=== PATIENT | male | born 1955 | race Caucasian/White ===

== ENCOUNTER 2021-02-07 06:46 | Day surgery (SDC) | payer OTHER ==
[2021-02-06 10:43] LABS: BASOPHILS % (AUTO) 1.4 % (0.0-5.0); EOSINOPHILS % (AUTO) 0.6 % (0.0-8.0); HEMATOCRIT 51.2 % (42-54); LYMPHOCYTES % (AUTO) 21.1 % (21.0-51.0); MEAN CORPUSCULAR HGB CONC 31.8 g/dL (32.0-36.0); MEAN CORPUSCULAR VOLUME 97.3 fL (79-99); MONOCYTES % (AUTO) 6.4 % (3.0-13.0); NEUTROPHILS % (AUTO) 70.2 % (40.0-77.0); PLATELET COUNT (AUTO) 160 K/uL (130-400); RED BLOOD CELL COUNT(AUTO) 5.26 MIL/uL (4.50-6.20); RED CELL DISTRIBUTION WIDTH 13.8 % (11.0-15.5); WHITE BLOOD COUNT (AUTO) 6.5 K/uL (4.8-10.8)
[2021-02-06 11:16] LABS: POTASSIUM 4.6 mmol/L (3.5-5.1)
[2021-02-07] VITALS (11 sets, daily range): BP systolic 116–143; BP diastolic 71–90
[~2021-02-07 06:46] MED LIST: ACET1TAB25 PO; AEC81 PO; EZET10TA48 PO; MELO10CA3 PO; OMEP40CA21 PO
[2021-02-07] MEDS ORDERED: LACTATED RINGERS 1000ML 1,000 ML IV ONE (07:36)
[2021-02-07] MEDS ORDERED: BUPIVACAINE/PF 0.5% 30ML VIAL ONE (07:58)
[2021-02-07] MEDS ORDERED: IOPAMIDOL 10 ML VIAL ONE (08:03)
[2021-02-07] MEDS: CEFAZOLIN SODIUM 1 GM VIAL ONE ×2 (08:06→08:31)
[2021-02-07] MEDS ORDERED: PROPOFOL 10 MG/ML 20ML VIAL IV ONE ×2 (08:25)
[2021-02-07] MEDS ORDERED: MIDAZOLAM HCL 1 MG/ML 2ML VIAL ONE (08:25)
[2021-02-07] MEDS ORDERED: FENTANYL CITRATE PF 50 MCG/1 ML 2ML VIAL ONE (08:26)
== END 2021-02-07 09:40 | disposition home or self-care (01) ==
LOC: DAH 06:46
PROVIDERS: ATTEND Orthopaedic Surgery
DX: M23.342 Other meniscus derangements, anterior horn of lateral meniscus, left knee (principal); Z20.822 Contact with and (suspected) exposure to COVID-19; M16.12 Unilateral primary osteoarthritis, left hip; G89.29 Other chronic pain; I10 Essential (primary) hypertension; E78.5 Hyperlipidemia, unspecified; G47.30 Sleep apnea, unspecified; K21.9 Gastro-esophageal reflux disease without esophagitis; Z98.890 Other specified postprocedural states; Z72.89 Other problems related to lifestyle; Z87.891 Personal history of nicotine dependence; Z79.01 Long term (current) use of anticoagulants; Z86.010 Personal history of colon polyps; Z82.49 Family history of ischemic heart disease and other diseases of the circulatory system; Z79.82 Long term (current) use of aspirin; Z79.899 Other long term (current) drug therapy; Z90.49 Acquired absence of other specified parts of digestive tract
CPT/HCPCS: 20610; 29881; 36415; 73502; 80048; 85025; 87635; A4215; A4221; A4222; A4223; A4663; C9803; J0690; J1030; J2250; J2704; J3010; J3490; J7120; Q9966; 27093

== ENCOUNTER 2021-07-02 15:31 | Emergency (ER) | payer OTHER ==
[~2021-07-02] VITALS: Ht 180.3 cm; Wt 105.7 kg
[~2021-07-02 15:31] MED LIST changes: -ACET1TAB25 PO; -AEC81 PO; +APIX2.5T PO; +AREDS PO; +HYDR-4060 PO; -MELO10CA3 PO; +TERA5CAP4 PO
[2021-07-02 15:37] VITALS: BP 120/71
== END 2021-07-02 17:09 | disposition home or self-care (01) ==
LOC: EDH 15:31
DX: I82.402 Acute embolism and thrombosis of unspecified deep veins of left lower extremity (principal); E78.00 Pure hypercholesterolemia, unspecified; Z90.49 Acquired absence of other specified parts of digestive tract; Z98.890 Other specified postprocedural states; Z88.8 Allergy status to other drugs, medicaments and biological substances; Z79.899 Other long term (current) drug therapy; Z91.048 Other nonmedicinal substance allergy status
CPT/HCPCS: 93970

== ENCOUNTER 2021-11-28 11:09 | Inpatient (IN) | payer OTHER ==
[2021-11-27 11:10] VITALS: BP 129/81
[~2021-11-28] VITALS: Ht 180.3 cm; Wt 109.5 kg
[~2021-11-28 11:09] MED LIST changes: -APIX2.5T PO; +DESONIDE TP; +DOCU100C33 PO; -HYDR-4060 PO; +MELO-106 PO; +MUPI22OI2 TP; +NORT75CA PO; +OMEP20CA12 PO; -OMEP40CA21 PO; +PIME30CR TP; +[UNRECOGNIZED DRUG - REMARK] OU; +areds PO
[2021-11-28 11:40] VITALS: BP 126/81
[2021-11-28] MEDS ORDERED: LACTATED RINGERS 1000ML 1,000 ML IV ONE (11:53)
[2021-11-28] MEDS ORDERED: SILD100T PO (12:11)
[2021-11-28] MEDS ORDERED: CEFAZOLIN SODIUM 1 GM VIAL ONE (14:43)
[2021-11-28] MEDS ORDERED: SUCCINYLCHOLINE CHLORIDE 20 MG/ML 10 ML VIAL ONE (20:07)
[2021-11-28] MEDS ORDERED: ROCURONIUM 10MG/1ML SYR 10 MG/ML ML ONE ×2 (20:07→21:33)
[2021-11-28] MEDS ORDERED: MIDAZOLAM HCL 1 MG/ML 2ML VIAL ONE (20:07)
[2021-11-28] MEDS ORDERED: PROPOFOL 10 MG/ML 20ML VIAL IV ONE (20:07)
[2021-11-28] MEDS ORDERED: FENTANYL CITRATE PF 50 MCG/1 ML 2ML VIAL ONE (20:08)
[2021-11-28] MEDS ORDERED: CEFAZOLIN SODIUM 2 GM VIAL IV ONE (20:20)
[2021-11-28] MEDS ORDERED: VANCOMYCIN 1G VIAL TP ONE (20:56)
[2021-11-28] MEDS ORDERED: BUPIVACAINE/PF 0.25% 30ML VIAL IJ ONE (20:58)
[2021-11-28] MEDS ORDERED: MORPHINE PF 100MG/10ML AMP IV ONE (20:58)
[2021-11-28] MEDS ORDERED: THROMBIN-JMI 20000 UNIT KIT TP ONE (20:59)
[2021-11-28] MEDS ORDERED: FENTANYL CITRATE PF 50 MCG/1 ML 5ML AMP IV ONE (21:31)
[2021-11-28] MEDS ORDERED: VANCOMYCIN 1G VIAL ONE (21:59)
[2021-11-28] MEDS ORDERED: GLYCOPYRROLATE 1 MG/5 ML SYRINGE ONE (22:05)
[2021-11-28] MEDS ORDERED: PHENYLEPHRINE HCL 10 MG/ML 1ML VIAL IV ONE (22:37)
[2021-11-28] MEDS ORDERED: EPHEDRINE SULFATE 50 MG/ML AMPULE ONE (22:38)
[2021-11-28] MEDS ORDERED: MEPERIDINE-PF 25 MG/ML SYG ONE (23:06)
[2021-11-28] MEDS ORDERED: KETOROLAC 30MG VIAL (30MG/ML) ONE (23:19)
[2021-11-28] MEDS ORDERED: NEOSTIGMINE 5MG/5ML SYR IV ONE (23:33)
[2021-11-29] VITALS (26 sets, daily range): BP systolic 122–165; BP diastolic 58–97
[2021-11-29] MEDS ORDERED: MEPERIDINE-PF 50 MG/ML SYG ONE ×2 (00:06→04:08)
[2021-11-29] MEDS ORDERED: FENTANYL CITRATE PF 50 MCG/1 ML 2ML VIAL ONE (00:27)
[2021-11-29] MEDS: LACTATED RINGERS 1000ML 1,000 ML IV SCH ×2 (02:30→13:32)
[2021-11-29] MEDS ORDERED: ONDANSETRON 4MG INJ IVP PRN (02:30)
[2021-11-29] MEDS ORDERED: ACETAMINOPHEN WITH CODEINE 1 TAB TAB PO PRN (02:30)
[2021-11-29] MEDS ORDERED: MEPERIDINE-PF 75 MG/ML SYG IM PRN (02:30)
[2021-11-29] MEDS ORDERED: MELOXICAM 7.5 MG TABLET PO PRN (03:00)
[2021-11-29] MEDS ORDERED: DOCUSATE SODIUM 100 MG CAP PO PRN (03:00)
[2021-11-29] MEDS: MEPERIDINE-PF 25 MG/ML SYG IV PRN ×2 (08:05→20:00)
[2021-11-29] MEDS: EZETIMIBE 10 MG TAB PO SCH (08:12)
[2021-11-29] MEDS: PANTOPRAZOLE 40 MG TAB DR PO SCH ×2 (08:20→19:57)
[2021-11-29] MEDS: ACETAMINOPHEN WITH CODEINE 1 TAB TAB PO PRN (10:42)
[2021-11-29] MEDS ORDERED: MEPERIDINE-PF 25 MG/ML SYG IM PRN (20:30)
[2021-11-29] MEDS: AREDS VITAMIN PO SCH (20:45)
[2021-11-29] MEDS ORDERED: NORTRIPTYLINE HCL 150 MG PO SCH ×2 (21:00)
[2021-11-29] MEDS ORDERED: TERAZOSIN 5MG CAP PO SCH (21:00)
[2021-11-30 04:38] VITALS: BP 119/70
[2021-11-30 07:40] VITALS: BP 130/70
[2021-11-30] MEDS: AREDS VITAMIN PO SCH (09:00)
[2021-11-30] MEDS: PANTOPRAZOLE 40 MG TAB DR PO SCH (09:19)
[2021-11-30] MEDS: ACETAMINOPHEN WITH CODEINE 1 TAB TAB PO PRN (09:19)
[2021-11-30] MEDS: EZETIMIBE 10 MG TAB PO SCH (09:19)
[2021-11-30 10:39] VITALS: BP 126/69
== END 2021-11-30 14:47 | disposition home health service (06) | DRG 460 ==
LOC: DAH 11:09 → DAHIP 11:10 → DAH 11:10 → OBSVTOIN 11:10 → 4AH 11-29 01:21
PROVIDERS: ADMIT Neuromusculoskeletal Medicine & OMM; ATTEND Neuromusculoskeletal Medicine & OMM
PROC: 00NY0ZZ Release Lumbar Spinal Cord, Open Approach (ICD-10-PCS; 2021-11-28)
PROC: 4A11X4G Monitoring of Peripheral Nervous Electrical Activity, Intraoperative, External Approach (ICD-10-PCS; 2021-11-28)
PROC: 0SG30AJ Fusion of Lumbosacral Joint with Interbody Fusion Device, Posterior Approach, Anterior Column, Open Approach (ICD-10-PCS; principal; 2021-11-28 20:56)
DX: M48.07 Spinal stenosis, lumbosacral region (principal); M51.37 Other intervertebral disc degeneration, lumbosacral region; M48.062 Spinal stenosis, lumbar region with neurogenic claudication; Z20.822 Contact with and (suspected) exposure to COVID-19
CPT/HCPCS: 36415; 72110; 86850; 86900; 86901; 87426; 96372; 96374; 96375; 96376; 97039; G0378; J0330; J0690; J1885; J2175; J2250; J2274; J2370; J2405; J2704; J2710; J3010; J3370; J3490; J7030; J7120

== ENCOUNTER 2024-05-23 07:24 | Emergency (ER) | payer OTHER, MEDICARE ==
[~2024-05-23] VITALS: Ht 180.3 cm; Wt 111.1 kg
[~2024-05-23 07:24] MED LIST changes: -AREDS PO; +SILD100T PO
[2024-05-23] MEDS: LIDOCAINE 5% TOPICAL PATCH TP ONE (09:26)
[2024-05-23] MEDS: diazePAM 5 MG/ML 2 ML SYG IM ONE (09:27)
--- NOTE | 2024-05-23 10:15 | ERN ---
ED Note History of Present Illness Stated Complaint: LT SCIATICA PAIN Chief Complaint: Lower Extremity Pain/Injury Time Seen by MD: 07:31 Dictation: 68-year-old male presents to the ED for evaluation of left sciatica pain onset 2 weeks ago. Patient reports he felt a pop after getting out of the car two weeks ago. History of total left hip replacement. Allergies: Coded Allergies: Sijapnm-HTY-JaF Reductase Inhibitor (Unverified Allergy, Unknown, 02/06/21) adhesive tape (Unverified Allergy, Unknown, 06/20/21) gabapentin (Unverified Allergy, Unknown, 02/06/21) Home Meds Reported Medications Sildenafil Citrate (Viagra) 100 Mg Tablet, 100 MG PO AD, TAB 11/28/21 Pimecrolimus (Pimecrolimus) 30 Gm Cream..g., 1 APPL TP AD 11/27/21 [areds] No Conflict Check, 1 TAB PO BID 11/27/21 Omeprazole (Omeprazole) 20 Mg Capsule.dr, 20 MG PO BID, CAP 11/27/21 Nortriptyline HCl (Nortriptyline HCl) 75 Mg Capsule, 150 MG PO HS, CAP 11/27/21 Mupirocin (Mupirocin Ointment) 22 Gm Oint, 1 APPL TP AD PRN for RASH, APPL 11/27/21 Meloxicam (Meloxicam) 7.5 Mg Tablet, 7.5 MG PO DAILY PRN for pain, TAB 11/27/21 [ketolifen] No Conflict Check, 1 DROP OU BID 11/27/21 Docusate Sodium (Docusate Sodium) 100 Mg Capsule, 100 MG PO DAILY PRN for CONSTIPATION, CAP 11/27/21 [desonide] No Conflict Check, 1 APPL TP AD 11/27/21 Terazosin HCl (Terazosin HCl) 5 Mg Capsule, 5 MG PO HS, CAP 06/20/21 Ezetimibe (Ezetimibe) 10 Mg Tablet, 10 MG PO DAILY, TAB 02/06/21 Past Medical History Past Medical History: DVT, High Cholesterol 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 Surgical History: Appendectomy Surgical History Other: MAXINE left HIP, BACK, SHOULDER, LT KNEE Family History: Negative Social History: Negative Review of System Dictation Constitutional: Negative for fever,chills, and weight loss Eyes: Negative for injury, pain,redness, and discharge ENT: Negative for injury,pain or swelling Cardiovascular: Negative for chest pain, palpitations, and edema Respiratory: Negative for shortness of breath, cough, and wheezing, Abdomen/GI: Negative for abdominal pain, nausea, vomiting, diarrhea, and constipation Back: Negative for injury and pain : Negative for injury, bleeding and discharge MS/Extremity: Negative for injury and deformity Skin: Negative for rash, and discoloration Neuro: Negative for headache, weakness, numbness, tingling, and seizure Psych: Negative for suicide ideation, homicidal ideation, and hallucinations Initial Vital Sign VS Vital Signs Date Time Temp Pulse Resp B/P (MAP) Pulse Ox O2 Delivery O2 Flow Rate FiO2 05/23/24 07:27 98.2 79 16 106/78 98 Room Air 0 05/23/24 07:30 21 Physical Exam Dictation General: awake, alert, NAD Head/Face: Normocephalic, atraumatic Eyes: PERRL, EOMI, vision at baseline ENT: oral cavity clear, TMs clear, no signs of infection Neck: Trachea midline, supple, no nuchal rigidity Cardiovascular: RRR, normal S1/S2, No MRGs, no JVD Respiratory: CTAB, no respiratory distress, No rales or wheezes Abdomen: Soft, non-tender, non-distended, normal bowel sounds, no guarding or rebound. Skin: Warm, dry, normal turgor, no rash MS/Extremity: Pulses equal, no cyanosis, neurovascular intact, positive straight left leg test Neuro: COAx4, GCS 15, strength 5/5, CN 2-12 intact, normal cerebellar exam, normal gait, Psych: Normal behavior, mood, and affect normal Results (Laboratory/Radiology) Laboratory/Radiology Laboratory Tests Test 05/23/24 17:04 White Blood Count 4.3 K/uL (4.8-10.8) L Red Blood Count 4.55 MIL/uL (4.50-6.20) Hemoglobin 14.0 g/dL (14.0-18.0) Hematocrit 42.2 % (42-54) Mean Corpuscular Volume 92.7 fL (79-99) Mean Corpuscular Hemoglobin 30.8 pg (27.0-33.0) Mean Corpuscular Hemoglobin Concent 33.2 g/dL (32.0-36.0) Red Cell Distribution Width 13.8 % (11.0-15.5) Platelet Count 151 K/uL (130-400) Mean Platelet Volume 9.9 fL (7.5-10.5) Immature Granulocyte % (Auto) 0.7 % (0-1) Neutrophils (%) (Auto) 76.7 % (40.0-77.0) Lymphocytes (%) (Auto) 10.5 % (21.0-51.0) L Monocytes (%) (Auto) 11.2 % (3.0-13.0) Eosinophils (%) (Auto) 0.0 % (0.0-8.0) Basophils (%) (Auto) 0.9 % (0.0-5.0) Neutrophils # (Auto) 3.3 K/uL (1.8-7.7) Lymphocytes # (Auto) 0.5 K/uL (1.0-4.8) L Monocytes # (Auto) 0.5 K/uL (0.1-1.0) Eosinophils # (Auto) 0.00 K/uL (0.00-0.70) Basophils # (Auto) 0.04 K/uL (0.00-0.20) Absolute Immature Granulocyte (auto 0.03 K/uL (0-1) Nucleated Red Blood Cells 0.0 % (0.0-0.19) Sodium Level 140 mmol/L (136-145) Potassium Level 3.1 mmol/L (3.5-5.1) L Chloride Level 104 mmol/L (101-111) Carbon Dioxide Level 25 mmol/L (21-32) Blood Urea Nitrogen 12 mg/dL (7-18) Creatinine 1.0 mg/dL (0.5-1.3) Glomerular Filtration Rate Calc 82 mL/min (>90) Random Glucose 79 mg/dL (70-105) Total Calcium 8.5 mg/dL (8.5-10.1) Labs Reviewed?: Yes X-RAY Comment: REASON: left hip pain ORDERING PHYSICIAN: CATY CAMPOS MD PROCEDURE: HIP U 2V L - HIP UNILAT 2-3VW LEFT HIP UNILAT 2-3VW LEFT CLINICAL HISTORY: left hip pain COMPARISON: None TECHNIQUE: AP pelvis and 2 images left hip were obtained. FINDINGS: There is change from left total hip arthroplasty. There is also change present lumbar sacral spinal fusion . There is no identified acute fracture subluxation dislocation. IMPRESSION: No acute findings. DICTATED BY: SLIME BANEGAS DO DATE: 05/23/[address] Scan Comment: REASON: low back pain ORDERING PHYSICIAN: CATY CAMPOS MD PROCEDURE: L SPIN WO - CT LUMBAR SPINE W/O CONTRAST CT LUMBAR SPINE W/O CONTRAST REASON: low back pain COMPARISON: None TECHNIQUE: Routine lumbar imaging protocol was performed from mid body T11 through the sacrum. Sagittal and coronal reconstruction images were then performed. FINDINGS: There are normal appearing vertebral bodies. There is narrowing of the L5-S1 interspace there is a disc stabilization device in place. There are bilateral pedicle screws at L3, L4 and L5 and there has been bilateral laminectomy at L4 and L5. There is ligamentum flavum and facet hypertrophic change at L3-4. There is annular bulge. These findings result in severe spinal stenosis, AP diameter 5 mm in the midline and more pronounced narrowing in the lateral recesses. Remaining interspaces are preserved. There are no focal osseous lesions. Surrounding soft tissues appear unremarkable. IMPRESSION: 1. Postop and degenerative changes as described. 2. Severe spinal stenosis at L3-4 on a degenerative basis. DICTATED BY: DAYTON MARTINEZ MD DATE: 05/23/24 1652 ED Course ED Course Orders Procedure Category Date Status Time Lidocaine (Lidoderm PHA 05/23/24 Complete Patch 5%) 08:30 Diazepam 5 Mg/Ml 2 Ml PHA 05/23/24 Complete Syg (Valium 5 Mg/M 08:30 Hip Unilat 2-3vw Left RAD 05/23/24 Resulted 08:26 Morphine 4mg Syg PHA 05/23/24 Complete (Morphine 4mg Syg) 10:30 Hydrocodone/Apap PHA 05/23/24 Complete 5/325 ([place] 5/325mg) 12:00 Hydromorphone 0.5mg PHA 05/23/24 Complete Syg (Dilaudid 0.5mg 15:30 Cbc With Differential LAB 05/23/24 Complete 15:58 Basic Metabolic Panel LAB 05/23/24 Complete 15:58 Ct Lumbar Spine W/O CT 05/23/24 Resulted Contrast 16:15 Current Medications Medications (Trade) Dose Ordered Sig/Sadie Route PRN Reason Start Time Stop Time Status Last Admin Dose Admin Acetaminophen/ Hydrocodone Bitart (NORco 5/325MG) 1 tab ONCE ONCE PO 05/23/24 12:00 05/23/24 12:01 DC 05/23/24 12:02 Diazepam (VALium 5 MG/ML 2 ML SYG) 5 mg ONCE ONCE IM 05/23/24 08:30 05/23/24 08:31 DC 05/23/24 09:27 Hydromorphone HCl (DiLAUDid 0.5MG INJ) 0.5 mg ONCE ONCE IVP 05/23/24 15:30 05/23/24 15:31 DC 05/23/24 15:33 Lidocaine (Lidoderm Patch 5%) 1 patch ONCE ONCE TP 05/23/24 08:30 05/23/24 08:31 DC 05/23/24 09:26 Morphine Sulfate (morPHINE 4MG SYG) 4 mg ONCE ONCE IVP 05/23/24 10:30 05/23/24 10:31 DC 05/23/24 10:33 Vital Signs Date Time Temp Pulse Resp B/P (MAP) Pulse Ox O2 Delivery O2 Flow Rate FiO2 05/23/24 15:30 98.1 72 25 138/73 96 Room Air* 0 21 05/23/24 10:44 98.1 81 17 131/66 96 Room Air* 0 21 05/23/24 10:00 74 17 138/78 98 Room Air* 0 05/23/24 08:35 98.2 75 17 126/69 96 Room Air* 0 21 05/23/24 07:30 98.2 79 16 106/78 98 Room Air* 0 05/23/24 07:27 98.2 79 16 106/78 98 Room Air 0 Medical Decision Making MDM MDM: Differential diagnosis: Sciatica, intractable pain, hip pain 1612- Dr. Ivy hospitalist consul, accepts patient for admission Risk of complication and/or morbidity or mortality of patient management: None Medications-Per medication reconciliation Need for hospitalization: Patient does meet criteria for hospitalization. Need for emergency major/minor surgery: No There are no social concerns with this patient. I independently interpreted the test that were performed, results were reviewed by me and considered findings on radiology if ordered. Medical management and examination interpretation discussions were had by me with other qualified healthcare professionals as indicated for the patient's care. DX & DISP Disposition: Inpatient Decision to Admit Date: May 23, 2024 Decision to Admit Time: 16:13 Departure Impression: Primary Impression: Intractable pain Additional Impression: Left hip pain Condition: Stable Referrals: SAMREEN LADD MD (PCP) CATY CAMPOS MD May 23, 2024 10:15
[2024-05-23] MEDS: morPHINE 4 MG SYG IVP ONE (10:33)
--- NOTE | 2024-05-23 10:53 | HMCIMG ---
HIP UNILAT 2-3VW LEFT CLINICAL HISTORY: left hip pain COMPARISON: None TECHNIQUE: AP pelvis and 2 images left hip were obtained. FINDINGS: There is change from left total hip arthroplasty. There is also change present lumbar sacral spinal fusion . There is no identified acute fracture subluxation dislocation. IMPRESSION: No acute findings.
[2024-05-23] MEDS: HYDROcodone/APAP 5/325 1 TAB TABLET PO ONE (12:02)
[2024-05-23] MEDS: hydroMORPHone 0.5 MG SYG (0.5MG/0.5ML) IVP ONE (15:33)
--- NOTE | 2024-05-23 17:12 | HMCIMG ---
CT LUMBAR SPINE W/O CONTRAST REASON: low back pain COMPARISON: None TECHNIQUE: Routine lumbar imaging protocol was performed from mid body T11 through the sacrum. Sagittal and coronal reconstruction images were then performed. FINDINGS: There are normal appearing vertebral bodies. There is narrowing of the L5-S1 interspace there is a disc stabilization device in place. There are bilateral pedicle screws at L3, L4 and L5 and there has been bilateral laminectomy at L4 and L5. There is ligamentum flavum and facet hypertrophic change at L3-4. There is annular bulge. These findings result in severe spinal stenosis, AP diameter 5 mm in the midline and more pronounced narrowing in the lateral recesses. Remaining interspaces are preserved. There are no focal osseous lesions. Surrounding soft tissues appear unremarkable. IMPRESSION: 1. Postop and degenerative changes as described. 2. Severe spinal stenosis at L3-4 on a degenerative basis.
[2024-05-23 17:15] LABS: BASOPHILS # (AUTO) 0.04 K/uL (0.00-0.20); BASOPHILS % (AUTO) 0.9 % (0.0-5.0); HEMATOCRIT 42.2 % (42-54); IMMATURE GRANULOCYTE ABSOLUTE 0.03 K/uL (0-1); LYMPHOCYTES # (AUTO) 0.5 K/uL (1.0-4.8); LYMPHOCYTES % (AUTO) 10.5 % (21.0-51.0); MEAN CORPUSCULAR HEMOGLOBIN 30.8 pg (27.0-33.0); MEAN CORPUSCULAR HGB CONC 33.2 g/dL (32.0-36.0); MEAN CORPUSCULAR VOLUME 92.7 fL (79-99); MONOCYTES # (AUTO) 0.5 K/uL (0.1-1.0); MONOCYTES % (AUTO) 11.2 % (3.0-13.0); NEUTROPHILS # (AUTO) 3.3 K/uL (1.8-7.7); NEUTROPHILS % (AUTO) 76.7 % (40.0-77.0); PLATELET COUNT (AUTO) 151 K/uL (130-400); RED BLOOD CELL COUNT(AUTO) 4.55 MIL/uL (4.50-6.20); RED CELL DISTRIBUTION WIDTH 13.8 % (11.0-15.5); WHITE BLOOD COUNT (AUTO) 4.3 K/uL (4.8-10.8)
[2024-05-23 17:17] LABS: POTASSIUM 3.1 mmol/L (3.5-5.1)
--- NOTE | 2024-05-23 18:17 | CONS ---
[facility] CONSULTATION NOTE Date of Service: May 23, 2024 Reason for Consultation: evaluation of intractable back pain Requesting Physician: Dr. Campos HISTORY OF PRESENT ILLNESS: 68-year-old male with history of BPH, prior history of lumbar stenosis involving L5-S1, L4-L5 with prior history of lumbar diskectomy of L5 and S1 with posterior decompressive laminectomy at L5 and S1, w/ arthrodesis of L4-L5, L5-S1 by Dr. Lubin in 2021, recent diagnosis of left lower extremity DVT who presented to the ER for further evaluation of intractable lower back pain radiating to the left. Symptoms have been ongoing for about a week and patient reports having history of sciatica. He has been maintained on outpatient pain control with Tylenol with codeine. Patient states that while he was getting out of the car about 10 days ago, he felt a pop and since then he has been having intractable pain. Pain is 10/10 in intensity and it starts from the lower back and goes all the way into the ankle. Patient also has tingling involving the left foot. He has been unable to ambulate due to severity of pain. He has been observed in the ER for about 8 hours and had received multiple doses of narcotics including hydromorphone 0.5 mg, Irving-5, 4 mg of IV morphine, diazepam 5 mg, and lidocaine patch and patient states that his pain is currently 8/10 in intensity. Patient has undergone x-ray of the left hip which showed no acute fracture, subluxation or dislocation. I had recommended ER to obtain CT of the lumbar spine which showed postop changes of the L4-L5 and L5-S1 with severe spinal stenosis involving the L3/L4. Patient was recently diagnosed with left lower extremity DVT on the new year's last month and he has been on anticoagulation with Xarelto since then. Patient states that he took a dose of Xarelto this morning. REVIEW OF SYSTEMS CONSTITUTIONAL: Denies fevers, chills, or night sweats. No unintentional weight loss reported. NEUROLOGICAL: Patient reports having intractable pain involving the back radiating into the leg with tingling, pain is severe in intensity ENT: No hearing loss, otalgia, otorrhea, rhinitis, rhinorrhea, hoarseness, or sore throat. CARDIOVASCULAR: Denies any exertional angina, dyspnea on exertion, orthopnea, paroxysmal nocturnal dyspnea, palpitations, life-threatening arrhythmias, claudication. PULMONARY: Denies any shortness of breath, cough, phlegm/sputum, hemoptysis, pleuritic chest pain. SLEEP: Denies morning headaches, daytime somnolence or napping. Denies difficulty falling asleep, staying asleep, waking from sleep. Denies knowledge of snoring. GASTROINTESTINAL: Denies any type of dysphagia to either liquids or solids. Denies nausea, vomiting, pyrosis, early satiety, abdominal pain, diarrhea, co nstipation, or changes in stool consistency or caliber. Denies coffee-ground emesis, hematemesis, hematochezia, or melanotic stools. GENITOURINARY: Denies frequency, urgency, nocturia, hematuria or incontinence (Storage/Irritative symptoms.) Low urinary stream, straining to void, urinary intermittency or hesitancy, splitting of the voiding stream, terminal dribbling. ENDOCRINOLOGIC: Denies polyuria, polydipsia, polyphagia or heat/cold intolerances. HEMATOLOGIC: Denies thrombophilia/previous clots, or coagulopathy/bleeding disorders. ONCOLOGIC: Denies personal history of malignancy. DERMATOLOGIC: Denies rashes or pruritus. PSYCHIATRIC: Denies any suicidal or homicidal ideation. Denies hallucinations. PAST MEDICAL HISTORY: Recent diagnosis of left lower extremity deep vein thrombosis on 04/27 and patient was recently started on anticoagulation with Xarelto, and has a history of lumbar stenosis with disc herniation involving L5 and S1 and L4-L5 requiring surgery in 2021, BPH, hyperlipidemia, GERD PAST SURGICAL HISTORY: Posterior lumbar interbody fusion at L5 and S1, posterior decompressive laminectomy at L5 and S1, arthrodesis at L4-5, L5-S1, allograft bony fusion with autograft bony fusion, morselized, L4-5, L5-S1, pedicle screw fixation at L4, L5 and S1, application of interbody cage fusion at the L5-S1, arthrodesis and fluoroscopy by Dr. Lubin in 11/2021 Left total hip arthroplasty by Dr. Hammonds on 06/21/2021 PAST SOCIAL HISTORY: denies active smoking or alcohol consumption FAMILY HISTORY: denies pertinent family hx Coded Allergies: Bvgozni-GWT-AsZ Reductase Inhibitor (Unverified Allergy, Unknown, 02/06/21) adhesive tape (Unverified Allergy, Unknown, 06/20/21) gabapentin (Unverified Allergy, Unknown, 02/06/21) PHYSICAL EXAM GENERAL APPEARANCE: The patient is awake, alert, and oriented, in no acute cardiopulmonary distress. NEUROLOGICAL: Cranial nerves II-XII grossly intact. straight leg raise test was noted to be positive by ER physician, patient declined me on doing a repeat straight leg raise test HEENT: Face is symmetric. Pupils are equal and reactive. Extraocular movements are intact. NECK: Supple. No JVD. No thyromegaly. No submental, submandibular, pre-/postauricular, occipital or supraclavicular lymphadenopathy. CHEST: Normal chest expansion. No Telemetry. LUNGS: Absence of any rales, rhonchi or any wheezing. CARDIOVASCULAR: Regular. S1 and S2 normal. No appreciable rubs, murmurs or gallops. ABDOMEN: Soft, nontender, and nondistended. There is no rebound, voluntary guarding, or rigidity. : Deferred. No Floyd. EXTREMITIES: Non-edematous and not cyanotic. No clubbing. Good capillary refill. SKIN: No skin breakdown. Vital Sign (Last 24 Hours) 05/23/24 17:40 Temp 98.1 Pulse 74 Resp 25 B/P (MAP) 134/70 Pulse Ox 98 O2 Delivery Room Air* O2 Flow Rate 0 FiO2 21 LABS: Laboratory: Test 05/23/24 17:04 Range/Units White Blood Count 4.3 L 4.8-10.8 K/uL Red Blood Count 4.55 4.50-6.20 MIL/uL Hemoglobin 14.0 14.0-18.0 g/dL Hematocrit 42.2 42-54 % Mean Corpuscular Volume 92.7 79-99 fL Mean Corpuscular Hemoglobin 30.8 27.0-33.0 pg Mean Corpuscular Hemoglobin Concent 33.2 32.0-36.0 g/dL Red Cell Distribution Width 13.8 11.0-15.5 % Platelet Count 151 130-400 K/uL Mean Platelet Volume 9.9 7.5-10.5 fL Immature Granulocyte % (Auto) 0.7 0-1 % Neutrophils (%) (Auto) 76.7 40.0-77.0 % Lymphocytes (%) (Auto) 10.5 L 21.0-51.0 % Monocytes (%) (Auto) 11.2 3.0-13.0 % Eosinophils (%) (Auto) 0.0 0.0-8.0 % Basophils (%) (Auto) 0.9 0.0-5.0 % Neutrophils # (Auto) 3.3 1.8-7.7 K/uL Lymphocytes # (Auto) 0.5 L 1.0-4.8 K/uL Monocytes # (Auto) 0.5 0.1-1.0 K/uL Eosinophils # (Auto) 0.00 0.00-0.70 K/uL Basophils # (Auto) 0.04 0.00-0.20 K/uL Absolute Immature Granulocyte (auto 0.03 0-1 K/uL Nucleated Red Blood Cells 0.0 0.0-0.19 % Sodium Level 140 136-145 mmol/L Potassium Level 3.1 L 3.5-5.1 mmol/L Chloride Level 104 101-111 mmol/L Carbon Dioxide Level 25 21-32 mmol/L Blood Urea Nitrogen 12 7-18 mg/dL Creatinine 1.0 0.5-1.3 mg/dL Glomerular Filtration Rate Calc 82 >90 mL/min Random Glucose 79 70-105 mg/dL Total Calcium 8.5 8.5-10.1 mg/dL DIAGNOSTICS / RADIOLOGY: SERVICE 0885 REASON: left hip pain ORDERING PHYSICIAN: CATY CAMPOS MD PROCEDURE: HIP U 2V L - HIP UNILAT 2-3VW LEFT HIP UNILAT 2-3VW LEFT CLINICAL HISTORY: left hip pain COMPARISON: None TECHNIQUE: AP pelvis and 2 images left hip were obtained. FINDINGS: There is change from left total hip arthroplasty. There is also change present lumbar sacral spinal fusion . There is no identified acute fracture subluxation dislocation. IMPRESSION: No acute findings. DICTATED BY: SLIME BANEGAS DO DATE: 05/23/24 1049 ELECTRONICALLY SIGNED BY: SLIME BANEGAS DO DATE: 05/23/24 1053 SERVICE 1615 REASON: low back pain ORDERING PHYSICIAN: CATY CAMPOS MD PROCEDURE: L SPIN WO - CT LUMBAR SPINE W/O CONTRAST CT LUMBAR SPINE W/O CONTRAST REASON: low back pain COMPARISON: None TECHNIQUE: Routine lumbar imaging protocol was performed from mid body T11 through the sacrum. Sagittal and coronal reconstruction images were then performed. FINDINGS: There are normal appearing vertebral bodies. There is narrowing of the L5-S1 interspace there is a disc stabilization device in place. There are bilateral pedicle screws at L3, L4 and L5 and there has been bilateral laminectomy at L4 and L5. There is ligamentum flavum and facet hypertrophic change at L3-4. There is annular bulge. These findings result in severe spinal stenosis, AP diameter 5 mm in the midline and more pronounced narrowing in the lateral recesses. Remaining interspaces are preserved. There are no focal osseous lesions. Surrounding soft tissues appear unremarkable. IMPRESSION: 1. Postop and degenerative changes as described. 2. Severe spinal stenosis at L3-4 on a degenerative basis. DICTATED BY: DAYTON MARTINEZ MD DATE: 05/23/241651 ELECTRONICALLY SIGNED BY: DAYTON MARTINEZ MD DATE: 05/23/241711 ASSESSMENT: Intractable SEVERE lower back pain with severe spinal stenosis involving L3-L4, POA Recent history of left lower extremity DVT, 04/27, maintained on chronic anticoagulation with Xarelto, POA Acute sciatica, POA BPH, POA History of left total hip arthroplasty, POA GERD, POA Hyperlipidemia, POA History of gabapentin and statin allergy, POA PLAN: Patient is having intractable lower back pain radiating into the leg and has received multiple doses of narcotics with minimal improvement of pain. Patient has had previous multiple back surgeries involving L4-L5 and L5-S1 and CT of the lumbar spine showed severe spinal stenosis. I discussed with ER physician that patient will benefit from neurosurgical evaluation. Patient has recent history of DVT and is maintained on anticoagulation with Xarelto recent. I would recommend at least seeing what Neurosurgery has to say and may be patient may benefit from evaluation for epidural pain management if able keeping in mind patient is on Xarelto. [facility] [place] currently does not have Neurology or Neurosurgery available AIDEN Connelly MD, MD May 23, 2024 18:17
--- NOTE | 2024-05-23 20:09 | NUR ---
TRANSFER CALL PLACED TO [facility] DIRECTOR TO INITIATE TRANSFER FOR NEUROSURGERY SERVICES
[2024-05-23] MEDS: hydroMORPHone 1 MG INJ IVP ONE (20:17)
--- NOTE | 2024-05-23 20:40 | NUR ---
TRANSFER PT. WAS ACCEPTED @ 2030 BY AISHA CARBONE MD FOR TRANSFER TO [facility] [place] BED ASSIGNMENT AT THIS TIME: ER. REPORT: [phone]
--- NOTE | 2024-05-23 21:12 | NUR ---
[facility] CALLED FOR TRANSPORT
[2024-05-23 21:49] VITALS: BP 134/70; PULSE 74; RESP 25; TEMP 98.1; O2SAT 98
--- NOTE | 2024-05-23 21:50 | NUR ---
Report given to Mindi FERREIRA, charge nurse of [facility] ER. No further questions asked at this time./SHIRA
--- NOTE | 2024-05-23 21:58 | NUR ---
[facility] ARRIVED AT THIS TIME FOR PATIENT TRANSP[place] [facility] [place]SHIRA
== END 2024-05-23 22:04 | disposition short-term general hospital (02) ==
LOC: EDH 07:24
DX: M25.552 Pain in left hip (principal); E78.00 Pure hypercholesterolemia, unspecified; Z79.01 Long term (current) use of anticoagulants; Z79.899 Other long term (current) drug therapy; Z86.718 Personal history of other venous thrombosis and embolism; Z88.8 Allergy status to other drugs, medicaments and biological substances; Z90.49 Acquired absence of other specified parts of digestive tract
CPT/HCPCS: 99285; 96374; 72131; 96375; 80048; 85025; 36415; 73502; 96376; 96372; J1171 ×2; J3360; J2270